=== PATIENT | female | born 1995 | race Two or more races ===

== ENCOUNTER 2019-06-13 17:44 | Emergency (ER) | payer SELFPAY ==
[~2019-06-13] VITALS: Ht 175.3 cm; Wt 59.0 kg
[2019-06-13 17:56] VITALS: BP 129/86
[2019-06-13 18:46] LABS: Basophils # (auto) 0 uL; Basophils % (auto) 0.3 % (0.0-2.0); Eosinophils # (auto) 0 uL; Eosinophils % (auto) 0.6 % (0.0-7.0); Hematocrit 39.9 % (36.0-46.0); Hemoglobin 13.5 g/dL (12.2-16.2); Lymphocytes # (auto) 1.6 uL; Lymphocytes % (auto) 23.3 % (10.0-50.0); Mean Corpuscular Hemoglobin 31.7 pg (28.0-32.0); Mean Corpuscular Hgb Conc. 33.8 g/dL (32.0-36.0); Mean Corpuscular Volume 93.7 fL (80.0-100.0); Monocytes # (auto) 0.6 uL; Monocytes % (auto) 9.1 % (0.0-12.0); Neutrophils # (auto) 4.7 uL; Neutrophils % (auto) 66.7 % (37.0-80.0); Platelet Count (auto) 310 10^3/uL (140-450); Red Blood Cells 4.26 10^6/uL (4.0-5.20); Red Cell Distribution Width 14.1 % (11.8-14.3); White Blood Cell 7.1 10^3/uL (4.4-10.8)
[2019-06-13 18:55] LABS: Amphetamine Screen, Urine NEGATIVE (NEGATIVE); Barbiturate Scree,Urine NEGATIVE (NEGATIVE); Benzodiazephine Screen, Urine NEGATIVE (NEGATIVE); Cannabinoid Screen, Urine POSITIVE (NEGATIVE); Cocaine Screen, Urine POSITIVE (NEGATIVE); Opiate Scree,Urine NEGATIVE (NEGATIVE); Phencyclidine Screen, Urine NEGATIVE (NEGATIVE)
[2019-06-13 19:11] LABS: Alanine Aminotransferase 35 U/L (13-56); Albumin 4.4 g/dL (3.4-5.0); Anion Gap 10 (5-15); Aspartate Aminotransferase 26 U/L (15-37); BUN/Creatinine Ratio 17.6; Blood Urea Nitrogen 13 mg/dL (7-18); Calcium 8.9 mg/dL (8.5-10.1); Carbon Dioxide 25 mmol/L (21-32); Chloride 105 mmol/L (98-107); GFR African American 125 mL/min; GFR Non-African American 103 mL/min; Glucose 92 mg/dL (74-106); Magnesium 2.3 mg/dL (1.6-2.6); Potassium 3.7 mmol/L (3.5-5.1); Sodium 140 mmol/L (136-145)
[2019-06-13 19:16] LABS: Alkaline Phosphatase 64 U/L (45-117); Bilirubin, Total 0.8 mg/dL (0.2-1.0); Total Protein 8.6 g/dL (6.4-8.2)
[2019-06-13 20:25] LABS: Urine Amorphous Crystal FEW /hpf (None Seen); Urine Bacteria NONE SEEN /hpf (None Seen); Urine Blood 1+ /uL (Negative); Urine Mucus FEW (None Seen); Urine Specific Gravity 1.023 (1.001-1.035); Urine WBC 4 /hpf (0 - 5)
== END 2019-06-13 21:22 | disposition left against medical advice (07) ==
LOC: ER 17:53
DX: R00.2 Palpitations (principal); R20.0 Anesthesia of skin; Z53.21 Procedure and treatment not carried out due to patient leaving prior to being seen by health care provider
CPT/HCPCS: 36415; 80053; 80307; 81001; 83735; 84484; 85025; 93005

== ENCOUNTER 2021-02-15 12:32 | Emergency (ER) | payer MEDICAID ==
[~2021-02-15] VITALS: Ht 175.3 cm; Wt 65.3 kg
[2021-02-15] MEDS ORDERED: diphenhdrAMINE HCL 50 MG/1 ML VL IV ONE (12:45)
[2021-02-15] MEDS ORDERED: LORazepam 2MG/ML-1ML VIAL IV ONE (12:45)
[2021-02-15] MEDS ORDERED: SODIUM CHLORIDE 0.9% 1,000 ML IV ONE (12:45)
[2021-02-15 13:12] LABS: Basophils # (auto) 0 10 ^3/uL (0-0.2); Basophils % (auto) 0.4 % (0.0-2.0); Eosinophils # (auto) 0.1 10 ^3/uL (0-0.8); Eosinophils % (auto) 1.2 % (0.0-7.0); Hematocrit 41.5 % (36.0-46.0); Hemoglobin 14.6 g/dL (12.2-16.2); Lymphocytes # (auto) 2.5 10 ^3/uL (0.4-5.4); Lymphocytes % (auto) 29.6 % (10.0-50.0); Mean Corpuscular Hemoglobin 32.4 pg (28.0-32.0); Mean Corpuscular Hgb Conc. 35.1 g/dL (32.0-36.0); Mean Corpuscular Volume 92.3 fL (80.0-100.0); Monocytes # (auto) 0.7 10 ^3/uL (0-1.3); Monocytes % (auto) 8.3 % (0.0-12.0); Neutrophils # (auto) 5.1 10 ^3/uL (1.6-8.6); Neutrophils % (auto) 60.5 % (37.0-80.0); Nucleated Red Blood Cells % 0.1 %; Platelet Count (auto) 342 10^3/uL (140-450); Red Blood Cells 4.49 10^6/uL (4.0-5.20); Red Cell Distribution Width 12.9 % (11.8-14.3); White Blood Cell 8.4 10^3/uL (4.4-10.8)
[2021-02-15 13:33] LABS: Calcium 8.8 mg/dL (8.5-10.1); Chloride 109 mmol/L (98-107); Potassium 3.6 mmol/L (3.5-5.1); Sodium 142 mmol/L (136-145)
[2021-02-15 13:35] VITALS: BP 112/74
[2021-02-15 13:36] LABS: Albumin 4.2 g/dL (3.4-5.0); Anion Gap 8 (5-15); BUN/Creatinine Ratio 11.9; Blood Urea Nitrogen 8 mg/dL (7-18); Carbon Dioxide 25 mmol/L (21-32); GFR African American 138 mL/min; GFR Non-African American 114 mL/min; Glucose 91 mg/dL (74-106)
[2021-02-15 13:41] LABS: Alanine Aminotransferase 38 U/L (13-56); Alkaline Phosphatase 56 U/L (45-117); Aspartate Aminotransferase 15 U/L (15-37); Bilirubin, Total 1.1 mg/dL (0.2-1.0); Total Protein 8.2 g/dL (6.4-8.2)
[2021-02-15 14:04] LABS: Alcohol, Urine < 3.0 mg/dL (0-10); Amphetamine Screen, Urine NEGATIVE (NEGATIVE); Barbiturate Scree,Urine NEGATIVE (NEGATIVE); Benzodiazephine Screen, Urine NEGATIVE (NEGATIVE); Cannabinoid Screen, Urine NEGATIVE (NEGATIVE); Cocaine Screen, Urine NEGATIVE (NEGATIVE); Opiate Scree,Urine NEGATIVE (NEGATIVE); Phencyclidine Screen, Urine NEGATIVE (NEGATIVE)
== END 2021-02-15 14:26 | disposition home or self-care (01) ==
LOC: ER 12:32
DX: F41.9 Anxiety disorder, unspecified (principal); T78.40XA Allergy, unspecified, initial encounter; X58.XXXA Exposure to other specified factors, initial encounter
CPT/HCPCS: 36415; 80053; 80307; 84484; 85025; 93005; 96361; 96374; 96375; 99284; J1200; J2060; J7030